=== PATIENT | female | born 1935 | race Caucasian/White ===

== ENCOUNTER → 2018-09-23 11:13 | Outpatient (CLI) | payer MEDICARE, OTHER | END | disposition home or self-care (01) | LOC: D.HCCARDIO 11:13 | PROVIDERS: ATTEND Internal Medicine Cardiovascular Disease | DX: I48.91 Unspecified atrial fibrillation (principal) ==

== ENCOUNTER 2018-10-17 01:12 | Emergency (ER) | payer MEDICARE, OTHER ==
[2018-10-17 01:17] VITALS: Wt 43.8 kg
[2018-10-17] MEDS ORDERED: ARMOUR THYROID30 MG PO (01:21)
[2018-10-17] MEDS ORDERED: TOPROL XL50 MG PO (01:21)
[2018-10-17] MEDS ORDERED: VITAMIN D3400 UNI1 PO (01:22)
[2018-10-17] MEDS ORDERED: LIPITOR80 MG PO (01:22)
[2018-10-17] MEDS ORDERED: XARELTO20 MG PO (01:22)
[2018-10-17] MEDS ORDERED: CO Q-10200 MG PO (01:22)
[2018-10-17] MEDS ORDERED: FISH OIL 1,0001 CA1 PO (01:23)
[2018-10-17] MEDS ORDERED: VITAMIN B-122500 MCG PO (01:23)
[2018-10-17] MEDS ORDERED: ARTIFICIAL TEAR15 ML EACH EYE (01:24)
[2018-10-17 01:36] LABS: BASOPHILS 0.3 % (0-2); HEMATOCRIT 34.5 % (36.0-48.0); HEMOGLOBIN 11.6 g/dL (12-16); LYMPHOCYTES 37.5 % (15-50); MCHC 33.6 g/dL (31.0-37.0); MEAN PLATELET VOLUME 10.9 fL (7.4-10.4); MONOCYTES 9.3 % (2-11); NEUTROPHILS 50.9 % (40-80); PLATELET COUNT 120 10x3/uL (130-400); RBC 3.63 10x6/uL (4.00-5.40); RDW 13.1 % (11.5-14.5)
[2018-10-17 01:44] LABS: APTT 27.9 SECONDS (22.8-39.4); INR 1.22 (0.85-1.17); PROTIME 14.8 SECONDS (11.6-15.0)
[2018-10-17 01:49] LABS: ALBUMIN 3.9 g/dL (3.4-5.0); ALKALINE PHOSPHATASE 71 U/L (46-116); ALT (SGPT) 21 U/L (10-68); BILIRUBIN - TOTAL 0.56 mg/dL (0.2-1.3); CALC OSMOLALITY 281 mosm/kg (275-300); CARBON DIOXIDE 22.5 mmol/L (21.0-32.0); CHLORIDE - SERUM 102 mmol/L (98-107); CREATININE - SERUM 1.1 mg/dL (0.6-1.3); GLUCOSE 162 mg/dL (74-106); POTASSIUM - SERUM 3.8 mmol/L (3.5-5.1); PROTEIN - SERUM 7.6 g/dL (6.4-8.2); SODIUM 138 mmol/L (136-145); UREA NITROGEN 19 mg/dL (7-18); eGFR NON AFRICAN AMERICAN 50 mL/min (90-120)
[2018-10-17 02:00] LABS: CKMB 1.1 U/L (0.0-3.6); CREATINE KINASE 62 UL (21-215); MAGNESIUM - SERUM 1.9 mg/dL (1.8-2.4); THYROID STIMULATING HORMONE 8.72 uIU/mL (0.36-3.74); TROPONIN-I < 0.017 ng/mL (0.000-0.060)
[2018-10-17 04:29] VITALS: BP 115/60
== END 2018-10-17 04:31 | disposition other institution (70) ==
LOC: D.ER 01:12
PROVIDERS: Emergency Medicine
DX: I48.91 Unspecified atrial fibrillation (principal); G40.409 Other generalized epilepsy and epileptic syndromes, not intractable, without status epilepticus; E03.9 Hypothyroidism, unspecified; D61.818 Other pancytopenia

== ENCOUNTER → 2020-05-31 17:58 | Outpatient (CLI) | payer MEDICARE ==
[~2020-05-31 17:58] MED LIST: ARMOUR THYROID30 MG PO; ARTIFICIAL TEAR15 ML EACH EYE; CO Q-10200 MG PO; FISH OIL 1,0001 CA1 PO; LIPITOR80 MG PO; TOPROL XL50 MG PO; VITAMIN B-122500 MCG PO; VITAMIN D3400 UNI1 PO; XARELTO20 MG PO
[2020-05-31 18:39] LABS: BASOPHILS 0.3 % (0-2); EOSINOPHILS 1.3 % (0-7); HEMATOCRIT 36.5 % (36.0-48.0); HEMOGLOBIN 12.1 g/dL (12-16); LYMPHOCYTES 34.7 % (15-50); MCH 32.1 pg (26.0-34.0); MCHC 33.2 g/dL (31.0-37.0); MCV 96.8 fL (80.0-100.0); MEAN PLATELET VOLUME 11.3 fL (7.4-10.4); MONOCYTES 12.8 % (2-11); NEUTROPHIL ABS# 1.91 10x3/uL (1.56-6.13); NEUTROPHILS 50.9 % (40-80); PLATELET COUNT 131 10x3/uL (130-400); RBC 3.77 10x6/uL (4.00-5.40); RDW 12.4 % (11.5-14.5); WBC 3.8 10x3/uL (4.8-10.8)
[2020-05-31 19:19] LABS: ALBUMIN 3.9 g/dL (3.4-5.0); ANION GAP 3.8 mmol/L (8-16); BILIRUBIN - TOTAL 0.77 mg/dL (0.2-1.3); CALCIUM 9.3 mg/dL (8.5-10.1); CARBON DIOXIDE 33.4 mmol/L (21.0-32.0); CHOL - HDL RATIO 1.6 ratio (2.3-4.1); CREATININE - SERUM 0.9 mg/dL (0.6-1.3); LDL-HDL RATIO 0.5 ratio (1.5-3.5); POTASSIUM - SERUM 5.2 mmol/L (3.5-5.1); PROTEIN - SERUM 7.4 g/dL (6.4-8.2)
== END | disposition home or self-care (01) ==
LOC: D.LABREF 17:58
PROVIDERS: ATTEND Family Medicine
DX: I24.9 Acute ischemic heart disease, unspecified (principal); R56.9 Unspecified convulsions; E03.9 Hypothyroidism, unspecified; I10 Essential (primary) hypertension